=== PATIENT | female | born 1945 | race Caucasian/White ===

== ENCOUNTER → 2016-08-25 | Outpatient (CLI) | payer MEDICARE, OTHER ==
--- NOTE | 2016-08-26 14:46 | MAM ---
History: Well woman exam. Date of exam: 08/25/2016 Services provided: Bilateral full field digital screening mammography. CAD, the images were reviewed with R2 computer aided detection. FINDINGS: Glandular tissue is heterogeneously dense with increased mammographic density. Comparison with 2013 exam. Stable distribution. No dominant mass, architectural distortion or clustered microcalcification. IMPRESSION: Benign exam Recommendation: Routine annual mammography BIRAD CATEGORY: 2 BENIGN Electronically signed by: April Benavides MD 08/26/2016 2:45 PM CDT
== END ==
LOC: MAMMO 15:41
PROVIDERS: ATTEND Family Medicine
DX: Z12.31 Encounter for screening mammogram for malignant neoplasm of breast (principal)

== ENCOUNTER → 2016-08-31 | Outpatient (CLI) | payer MEDICARE, OTHER | LOC: LAB.O 08:08 | DX: R74.8 Abnormal levels of other serum enzymes (principal); R74.0 Nonspecific elevation of levels of transaminase and lactic acid dehydrogenase [LDH]; K76.0 Fatty (change of) liver, not elsewhere classified; K76.9 Liver disease, unspecified; K74.69 Other cirrhosis of liver; Z13.811 Encounter for screening for lower gastrointestinal disorder ==

== ENCOUNTER → 2016-09-23 | Outpatient (CLI) | payer MEDICARE, OTHER | END | disposition home or self-care (01) | LOC: GMAJ 11:31 | PROVIDERS: ATTEND Family Medicine | DX: I10 Essential (primary) hypertension (principal) ==

== ENCOUNTER 2016-12-31 08:00 | Day surgery (SDC) | payer MEDICARE, OTHER ==
[~2016-12-31 08:00] MED LIST: LACTATED RINGERS 1,000 ML ONE; LIDOCAINE 1% 10 ML VIAL INJ ONE; MIDAZOLAM INJ 5 MG/5 ML VIAL ONE; PROPOFOL 200 MG/20 ML VIAL IV ONE; fentaNYL CITRATE INJ 50 MCG/ML AMP ONE
--- NOTE | 2016-12-31 08:34 | OP ---
DATE OF PROCEDURE: 12/31/16 PREOPERATIVE DIAGNOSIS: 1. Colon cancer screen. 2. History of diverticulosis of the colon. POSTOPERATIVE DIAGNOSIS: 1. Diverticulosis of the sigmoid colon. PROCEDURE: 1. Colonoscopy. SURGEON: Go Segovia MD. ANESTHESIA: MAC by Pedro Clay CRNA. ESTIMATED BLOOD LOSS: None. COMPLICATIONS: None apparent. TECHNIQUE: After informed consent was obtained from the patient, the patient was taken to the Endoscopy Suite and put in the left lateral decubitus position. After adequate IV sedation was obtained, a digital rectal exam was performed which revealed DECREASED sphincter tone, but no intraluminal masses. The colonoscope was then passed with good visualization all the way through the colon. The cecum was identified by the presence of ileocecal valve. The scope was then withdrawn slowly over the next 8 minutes and a good look at the entire colonic mucosa was obtained. The patient was noted to have a moderate amount of large-mouth diverticula through the sigmoid colon. There were no polyps, masses or other mucosal abnormalities found. The scope was removed. The patient tolerated the procedure well. The patient was transported to the outpatient area in good condition. She will followup on a p.r.n. basis. #[id number] [facility]
[2016-12-31 13:33] VITALS: BP 116/82; TEMP 97.5; O2SAT 99
== END 2016-12-31 08:45 | disposition home or self-care (01) ==
LOC: AMB 08:00
PROVIDERS: ATTEND Family Medicine
DX: K57.30 Diverticulosis of large intestine without perforation or abscess without bleeding (principal); I10 Essential (primary) hypertension; E78.5 Hyperlipidemia, unspecified; M85.80 Other specified disorders of bone density and structure, unspecified site; K59.00 Constipation, unspecified; L65.9 Nonscarring hair loss, unspecified; Z79.82 Long term (current) use of aspirin; Z79.899 Other long term (current) drug therapy
CPT/HCPCS: 00810; 45378; J2250; J3010; J3490; J7120

== ENCOUNTER → 2017-09-21 | Outpatient (CLI) | payer MEDICARE, OTHER ==
--- NOTE | 2017-09-21 17:19 | MAM ---
EXAM DESCRIPTION: 3D Screening BILATERAL : Digital Mammography. CLINICAL HISTORY: 72 years Female SCREENING . No complaints. Remote family history of breast cancer. Childbirth. Postmenopausal. No HRT. COMPARISON: 2-D digital screening bilateral study 08/25/2016. Report from prior examination also reviewed. TECHNIQUE: Bilateral CC and MLO projection full-field images, 3-D tomosynthesis digital mammographic technique. CAD not utilized. FINDINGS: The breast parenchymal density pattern is: Heterogeneously dense breast tissue, which may obscure small masses. No skin thickening or nipple retraction right axillary lymph nodes. Bilateral solitary microcalcifications. Small group of benign type calcifications posterior medial left breast. No focal, stellate mass or density, focal asymmetry , and no suspicious microcalcifications bilaterally. Stable mammograms compared to prior study, taking into account differences in mammographic technique IMPRESSION: BI-RADS CATEGORY: 2 - BENIGN FINDINGS. FOLLOW UP: Routine digital bilateral screening, one year interval from September 2017. Written communication explaining the IMPRESSION and follow-up, will be mailed to the patient and referring health care provider. According to the [employer], yearly mammograms are recommended starting at age 40 and continuing as long as a woman is in good health. Any breast change noted on a breast self-exam should be reported promptly to the patient's healthcare provider. Breast MRI is recommended for women with an approximately 20-25% or greater lifetime risk of breast cancer, including women with a strong family history of breast or ovarian cancer and women who have been treated for Hodgkin's disease. A negative mammographic report should not delay tissue diagnosis in patients with significant clinical history or physical findings. Extremely dense breast tissue limits the sensitivity of digital mammography. Electronically signed by: Ron Rocha MD 09/21/2017 5:17 PM CDT
== END ==
LOC: MAMMO 15:00
PROVIDERS: ATTEND Family Medicine
DX: Z12.31 Encounter for screening mammogram for malignant neoplasm of breast (principal)

== ENCOUNTER → 2017-09-28 | Outpatient (CLI) | payer MEDICARE, OTHER | LOC: GMAL 12:12 | PROVIDERS: ATTEND Family Medicine | DX: I10 Essential (primary) hypertension (principal) ==

== ENCOUNTER → 2018-11-16 | Outpatient (CLI) | payer MEDICARE, OTHER ==
--- NOTE | 2018-11-17 15:06 | MAM ---
EXAM DESCRIPTION: 3D Screening BILATERAL : Digital Mammography. CLINICAL HISTORY: 73 years Female Yearly screening . No complaints. No personal history of breast cancer. Remote family history of breast cancer. Childbirth. Postmenopausal 45+ years. HRT 5 or more years ago. Lifetime risk of developing breast cancer (Tyrer-Cuzick model)(%): 7.7. COMPARISON: Bilateral screening digital breast tomosynthesis 09/21/2017.. TECHNIQUE: Bilateral CC and MLO projection full-field images, digital tomosynthesis mammographic technique. Bilateral digital 2-D full-field MLO images. CAD not available for tomosynthesis or 2-D images. FINDINGS: The breast parenchymal density pattern is: Heterogeneously dense breast tissue, which may obscure small masses. No skin thickening or nipple retraction. No new focal, stellate mass or density, focal asymmetry , and no suspicious microcalcifications bilaterally. Stable mammograms compared to prior study. IMPRESSION: BI-RADS CATEGORY: 1 - NEGATIVE FOLLOW UP: Routine digital bilateral screening, one year interval from November 2018. Written communication explaining the findings and follow-up, will be mailed to the patient and referring health care provider. According to the [employer], yearly mammograms are recommended starting at age 40 and continuing as long as a woman is in good health. Any breast change noted on a breast self-exam should be reported promptly to the patient's healthcare provider. Breast MRI is recommended for women with an approximately 20-25% or greater lifetime risk of breast cancer, including women with a strong family history of breast or ovarian cancer and women who have been treated for Hodgkin's disease. A negative mammographic report should not delay tissue diagnosis in patients with significant clinical history or physical findings. Extremely dense breast tissue limits the sensitivity of digital mammography. Electronically signed by: Ron Rocha MD 11/17/2018 3:04 PM CDT
== END ==
LOC: MAMMO 15:30
PROVIDERS: ATTEND Family Medicine
DX: Z12.31 Encounter for screening mammogram for malignant neoplasm of breast (principal)

== ENCOUNTER 2019-09-11 14:22 | Emergency (ER) | payer MEDICARE, OTHER ==
[2019-09-11 14:54] VITALS: TEMP 97.2
--- NOTE | 2019-09-11 15:24 | RAD ---
Frontal and lateral views of the right knee. Indication: fall Comparison: None. Impression: Mildly comminuted fracture central to lateral aspect lateral tibial plateau highly suspected without significant impaction. CT could better evaluate. Mild tricompartmental osteoarthritis. Millimetric loose body suspected in Hoffa's fat pad. Electronically signed by: Kavin Og MD 09/11/2019 3:22 PM CDT
--- NOTE | 2019-09-11 15:40 | RAD ---
EXAM DESCRIPTION: Pelvis CLINICAL HISTORY: 74 years Female, fall COMPARISON: None. FINDINGS: Single AP view of the pelvis shows no acute pelvic fracture. The hip joint spaces are fairly well-maintained. The sacroiliac joints and pubic symphysis are unremarkable. No soft tissue abnormality. IMPRESSION: Negative exam. Electronically signed by: Elmer Bowman MD 09/11/2019 3:38 PM CDT
--- NOTE | 2019-09-11 15:41 | RAD ---
EXAM DESCRIPTION: Hip,Right 2 Views CLINICAL HISTORY: 74 years Female, fall COMPARISON: None. FINDINGS: Two views of the right hip show no acute fracture or malalignment. No right hip joint space narrowing. No soft tissue abnormality. IMPRESSION: No acute findings. Electronically signed by: Elmer Bowman MD 09/11/2019 3:40 PM CDT
[2019-09-11 16:57] VITALS: O2SAT 96
--- NOTE | 2019-09-11 16:59 | CT ---
EXAM DESCRIPTION: Lower Extremity CLINICAL HISTORY: 74 years Female, R KNEE TIBIAL PLATEAU FRX PER XRAY. COMPARISON: Current plain film TECHNIQUE: This exam was performed according to our departmental dose-optimization program, which includes automated exposure control, adjustment of the mA and/or kV according to patient size and/or use of iterative reconstruction technique. Noncontrast CT examination right knee with MPR reformatted images FINDINGS: Moderately degenerative right knee is present. Large effusion or hemarthrosis is present. Patella and femur appear intact with modest marginal osteophyte formation. Mildly impacted fracture of the lateral tibial plateau the junction of the mid and lateral third is present with approximate 5 mm of step-off at the articular surface. On sagittal imaging there is posterior tilting of the impacted posterior fragment laterally very subtle fragmentation of the fragment suspected. IMPRESSION: 1. Lateral tibial plateau fracture involving the lateral posterior corner and involving an area approximately 1 x 2 cm in size with maximal step off at the medial margin estimated at 5 mm with posterior downward tilting of the fragment on sagittal imaging. Mild fragmentation of the impacted fragment is suggested particularly on sagittal imaging. 2. Intact medial tibial plateau femur and patella with moderate hemarthrosis. Electronically signed by: Angel Cabrera MD 09/11/2019 4:58 PM CDT
[2019-09-11 17:14] VITALS: BP 150/74
--- NOTE | 2019-09-11 17:57 | ED.PDOC ---
History of Present Illness - General Chief Complaint: Trauma Stated Complaint: fall Time Seen by Provider: 09/11/19 15:00 Source: patient, family Exam Limitations: no limitations - History of Present Illness Initial Comments: PT FELL OFF LADDER WHILE PAINTING. R HIP AND R KNEE PAIN. DENIES HEAD COLLISION, HEAD INJURY, OR ANY OTHER PAINS. Occurred: just prior to arrival Severity: moderate Pain Location: lower extremity Method of Injury: fall Improving Factors: immobilization Worsening Factors: movement Loss of Consciousness: no loss of consciousness Associated Symptoms (Fall): denies symptoms Allergies/Adverse Reactions: Allergies NO KNOWN ALLERGY Allergy (Verified 09/11/19 16:13) Home Medications: Ambulatory Orders Lisinopril PO DAILY 09/11/19 Rosuvastatin Calcium PO DAILY 09/11/19 Review of Systems - Review of Systems Constitutional: States: no symptoms reported EENTM: Denies: ear pain, nose pain, mouth pain Respiratory: Denies: short of breath, wheezing Cardiology: Denies: chest pain, palpitations Gastrointestinal/Abdominal: Denies: abdominal pain, nausea Genitourinary: States: no symptoms reported. Denies: pain Musculoskeletal: States: joint pain. Denies: back pain, neck pain Skin: Denies: lesions, rash Neurological: Denies: headache, numbness, paresthesia Endocrine: States: no symptoms reported Hematologic/Lymphatic: States: no symptoms reported All other Systems: Reviewed and Negative Past Medical History (General) - Patient Medical History Hx Asthma: No Hx of COPD: No Hx Cardiac Disorders: No Hx Congestive Heart Failure: No Hx Hypertension: Yes Hx Diabetes: No Hx MRSA: No - Vaccination History Hx Influenza Vaccination: Yes Hx Pneumococcal Vaccination: Yes - Social History Hx Tobacco Use: No Hx Alcohol Use: No Hx Depression: No Family Medical History - Family History Mother Family History: Unknown Living Status: Unknown Physical Exam - Physical Exam General Appearance: Alert, Well Nourished Head Injury: no evidence of injury Eye Exam: bilateral normal ENT Exam: hearing grossly normal, no evidence of ENT injury, no dental injury Neck Exam: non-tender, full range of motion, normal inspection Cardiovascular/Respiratory: regular rate, rhythm, no M/R/G, no respiratory distress Gastrointestinal/Abdominal: non tender, soft Back Exam: normal inspection, no vertebral tenderness Extremity Exam: pelvis stable, pain with movement - R KNEE, tenderness - R KNEE Neurologic: no motor/sensory deficits, normal mood/affect, oriented x 3 Skin Exam: normal color, warm/dry - Tamika Coma Score Tamika Total: 15 Progress - Results/Orders Results/Orders: RIGHT KNEE LATERAL TIBIAL PLATEAU FRX PER XRAY AND CT. XRAY OF R HIP AND PELVIS NEG. I D/W DR. RUSSELL WHO RECOMMENDED CT KNEE, SPLINT, NON-WEIGHT BEARING (CRUTCHES GIVEN), AND PT TO CALL HIS OFFICE IN AM TO F/U OUTPT. I INSTRUCTED PT OF THE ABOVE. SAFE FOR DC TO HOME WITH . - EKG/XRAY/CT CT Ordered: No Departure - Departure Clinical Impression: Acute right hip pain Closed fracture of right tibial plateau Qualifiers: Encounter type: initial encounter Qualified Code(s): S82.141A - Displaced bicondylar fracture of right tibia, initial encounter for closed fracture Knee pain, right Qualifiers: Chronicity: acute Qualified Code(s): M25.561 - Pain in right knee Disposition: Discharge to Home or Self Care Condition: Good Departure Forms: ED Discharge - Pt. Copy, Patient Portal Self Enrollment Instructions: Fracture (DC) Diet: resume usual diet Activity: other - Do not bear weight on the right leg. Referrals: Lemuel Russell MD [Active Staff] - 1-2 Days Home Medications: Ambulatory Orders Lisinopril PO DAILY 09/11/19 Rosuvastatin Calcium PO DAILY 09/11/19
== END 2019-09-11 18:16 | disposition home or self-care (01) ==
LOC: ER 14:22
DX: S82.141A Displaced bicondylar fracture of right tibia, initial encounter for closed fracture (principal); M25.551 Pain in right hip; M25.561 Pain in right knee; I10 Essential (primary) hypertension; W11.XXXA Fall on and from ladder, initial encounter; Y92.9 Unspecified place or not applicable

== ENCOUNTER → 2019-09-13 | Outpatient (CLI) | payer MEDICARE, OTHER ==
--- NOTE | 2019-09-13 11:46 | RAD ---
EXAM DESCRIPTION: Knee,Right 1 or 2 Views CLINICAL HISTORY: CLOSED FRACTURE OF TIBIAL PLATEAU COMPARISON: CT September 11, 2019. X-ray dated September 11, 2019. Findings/impression: 2 views of the right knee. The lateral tibial plateau fracture seen on comparison CT is less conspicuous with this modality. There is persistent depression in parts of the articular surface measuring at least 0.3 cm. Diffuse decreased bone density suggesting a degree of osteopenia or osteoporosis. No other significant change. Electronically signed by: Jorge Mccurdy MD 09/13/2019 11:44 AM CDT
== END ==
LOC: RAD 10:13
PROVIDERS: ATTEND Orthopaedic Surgery
DX: S82.101A Unspecified fracture of upper end of right tibia, initial encounter for closed fracture (principal); M85.9 Disorder of bone density and structure, unspecified

== ENCOUNTER → 2019-09-27 | Outpatient (CLI) | payer MEDICARE, OTHER ==
--- NOTE | 2019-09-27 08:19 | RAD ---
EXAM DESCRIPTION: Knee x-ray,Right 2 Views CLINICAL HISTORY: 74 years, Female, TIB FX COMPARISON: Previous x-ray right knee September 13, 2019 TECHNIQUE: Two x-ray views of the right knee FINDINGS: Previous study showed fracture of the lateral tibial plateau. No change in alignment since previous study. The fracture line is not well seen on the x-rays. Previous CT exam showed the fracture to good advantage. Bones appear osteopenic. Mildly narrowed appearance of the medial compartment on frontal view with spurring of tibial spines. Mild spurring at the medial joint line. Calcification in the intercondylar notch region anteriorly is noted which could be intra-articular loose body. However previous CT findings would suggest dystrophic calcification in Hoffa's fat pad. Lateral view shows normal position of the patella. Early posterior patellar spur formation. No suprapatellar knee joint effusion. Normal contour of quadriceps and patellar tendons. IMPRESSION: Lateral tibial plateau fracture is difficult to visualize on the present study. See above. Electronically signed by: Jason Villavicencio MD 09/27/2019 8:18 AM CDT
== END ==
LOC: RAD 07:52
PROVIDERS: ATTEND Orthopaedic Surgery
DX: S82.101A Unspecified fracture of upper end of right tibia, initial encounter for closed fracture (principal)

== ENCOUNTER → 2019-10-25 | Outpatient (CLI) | payer MEDICARE, OTHER ==
--- NOTE | 2019-10-25 14:49 | RAD ---
EXAM DESCRIPTION: Knee,Right 1 or 2 Views CLINICAL HISTORY: 74 years, Female, CLOSED FRACTURE OF TIBIAL PLATEAU RIGHT COMPARISON: Previous x-ray right knee September 27, 2019 TECHNIQUE: Two x-ray views of the right knee FINDINGS: Previous study showed nondisplaced fracture of the lateral tibial plateau on the right September 13, 2019 which was difficult to see on most recent exam consistent with partial healing patient had a CT September 11, 2019 confirming the presence of a fractured mid and posterior lateral tibial plateau. Present findings are consistent with improvement from progressive healing. Bones appear osteopenic. Narrowed appearance of medial compartment on frontal view with spurring at the intracondylar notch and at the tibial spines and along the medial and lateral joint lines. Sclerosis and eburnation of the medial femoral condyle with subchondral lucency possibly cyst formation from overlying cartilage loss. Lateral view shows normal position of the patella. Mild posterior superior patellar spurring. No suprapatellar knee joint effusion. Normal contour of quadriceps and patellar tendons. IMPRESSION: Continued healing of lateral tibial plateau fracture. Degenerative changes as described. Electronically signed by: Jason Villavicencio MD 10/25/2019 2:47 PM CDT
== END ==
LOC: RAD 08:04
PROVIDERS: ATTEND Orthopaedic Surgery
DX: S82.101D Unspecified fracture of upper end of right tibia, subsequent encounter for closed fracture with routine healing (principal)

== ENCOUNTER → 2019-11-29 | Outpatient (CLI) | payer MEDICARE, OTHER ==
--- NOTE | 2019-11-29 11:54 | RAD ---
EXAM DESCRIPTION: Knee,Right 1 or 2 Views: CR/DR/XR. CLINICAL HISTORY: CLOSED FRACTURE OF TIBIAL PLATEAU RIGHT KNEE COMPARISON: 2 view right knee October 24. TECHNIQUE/FINDINGS: 2 views AP and lateral right knee.. IMPRESSION: Narrowing of the medial compartment. Marginal spurs medial and lateral. Spurs on the tibial spine. No suprapatellar effusion. Inferior patellar spurs. No abnormal radiodense objects in the soft tissues or joint spaces. No fracture. Stable since the prior study. Electronically signed by: Ron Rocha MD 11/29/2019 11:53 AM CDT
== END ==
LOC: RAD 08:00
PROVIDERS: ATTEND Orthopaedic Surgery
DX: S82.101D Unspecified fracture of upper end of right tibia, subsequent encounter for closed fracture with routine healing (principal); M25.861 Other specified joint disorders, right knee; M25.761 Osteophyte, right knee

== ENCOUNTER → 2019-12-11 | Outpatient (CLI) | payer MEDICARE, OTHER ==
--- NOTE | 2019-12-14 17:19 | MAM ---
EXAM DESCRIPTION: 3D Screening BILATERAL : Digital Mammography. CLINICAL HISTORY: 74 years Female ANNUAL SCREENING . No complaints. Remote family history of breast cancer. Menarche age 11. Childbirth age 20. Menopause age unknown. No HRT.. Lifetime risk of developing breast cancer (Tyrer-Cuzick model)(%): 3.4. COMPARISON: Bilateral screening digital breast tomosynthesis November 2018 and September 2017.. TECHNIQUE: Bilateral CC and MLO projection full-field images, with [employer]placement digital tomosynthesis mammographic technique. Bilateral 2-D digital full-field images, MLO and CC projections, non-displaced. Bilateral digital 2-D full-field MLO images. and CC images. CAD available for 2-D images. FINDINGS: The breast parenchymal density pattern is: Heterogeneously dense breast tissue, which may obscure small masses. No skin thickening or nipple retraction. Vascular calcifications. Right axillary nodes. No new focal, stellate mass or density, focal asymmetry , and no suspicious microcalcifications bilaterally. Stable mammograms compared to prior study. IMPRESSION: Benign exam. BIRAD CATEGORY: 2 BENIGN FINDINGS. RECOMMENDATIONS: FOLLOW UP: Routine digital bilateral mammographic screening, one year interval from December 2019. Written communication explaining the IMPRESSION and follow-up, will be mailed to the patient and referring health care provider. According to the [employer], yearly mammograms are recommended starting at age 40 and continuing as long as a woman is in good health. Any breast change noted on a breast self-exam should be reported promptly to the patient's healthcare provider. Breast MRI is recommended for women with an approximately 20-25% or greater lifetime risk of breast cancer, including women with a strong family history of breast or ovarian cancer and women who have been treated for Hodgkin's disease. A negative mammographic report should not delay tissue diagnosis in patients with significant clinical history or physical findings. Extremely dense breast tissue limits the sensitivity of digital mammography. Electronically signed by: Ron Rocha MD 12/14/2019 5:18 PM CDT
== END ==
LOC: MAMMO 09:10
PROVIDERS: ATTEND Family Medicine
DX: Z12.31 Encounter for screening mammogram for malignant neoplasm of breast (principal)